=== PATIENT | male | born 1950 | race Caucasian/White ===

== ENCOUNTER 2018-12-10 04:21 | Inpatient (IN) | payer MEDICARE, MEDICAID ==
[~2018-12-10] VITALS: Ht 170.2 cm; Wt 87.3 kg
[2018-12-10 04:28] VITALS: Ht 170.2 cm; Wt 87.3 kg
--- NOTE | 2018-12-10 04:34 | NUR ---
PT PRESENTS TO ER TODAY WITH C/O CP THAT STARTED APPROX 2 WEEKS AGO. PER PT HIS PAIN GOT WORSE TONIGHT SO HE CAME TO ER FOR EVALUATION. PT STATES THAT HIS CP IS TO THE L SIDE OF HIS CHEST AND IS NON-RADIATING. PT UNABLE TO DESCRIBE PAIN STATING "IT JUST HURTS". PT RATES HIS PAIN A 10/10. PT ALSO REPORTS SOB, PT LUNG CLEAR IN ALL MIRANDA WITH AUSCULATION. PT IS A/O X4. RESP ARE EQUAL AND UNLABORED. NO ACUTE DISTRESS NOTED. FAMILY AT BEDSIDE.
[2018-12-10 05:07] LABS: BASOPHIL % 0.7 % (0-2); PLATELET COUNT 260 x10^3mcL (130-400); RED CELL DISTRIBUTION WIDTH 13.3 % (11.5-14.5)
[2018-12-10 05:34] LABS: CALCIUM 8.3 mg/dL (8.5-10.1); CARBON DIOXIDE 30.5 mmol/L (21-32); CHLORIDE SERUM 103 mmol/L (98-107); CREATININE SERUM 0.9 mg/dL (0.7-1.3); GFR1 > 60 mL/min; GLUCOSE SERUM 273 mg/dL (74-106); POTASSIUM SERUM 3.6 mmol/L (3.5-5.1); SODIUM SERUM 139 mmol/L (136-145)
[2018-12-10 05:39] LABS: ALBUMIN 3.5 g/dL (3.4-5.0); ALKALINE PHOSPHATASE 146 U/L (46-116); ALT/SGPT 24 U/L (16-63); AST/SGOT 16 U/L (15-37); BILIRUBIN TOTAL 0.58 mg/dL (0.20-1.00); TOTAL PROTEIN, SERUM 7.1 g/dL (6.4-8.2)
--- NOTE | 2018-12-10 05:46 | NUR ---
PT RESTING IN BED WITH EYE CLOSED. PT REPONDS TO VERBAL STIMULI. PT RATES HIS CP AT 2/10 AT THIS TIME. PT VITALS ARE STABLE. PT IS A/O X4. NO ACUTE DITRESS NOTED.
[2018-12-10] MEDS ORDERED: LANTUS SOLOS100 U/M1 SC (06:09)
[2018-12-10] MEDS ORDERED: METFORMIN HYD1000 M2 PO (06:09)
--- NOTE | 2018-12-10 06:49 | NUR ---
PT RESTING WITH EYE CLOSEDPT RATES HIS PAIN A 2/10. PT VITALS STABLE. NO ACUTE DISTRESS NOTED.
--- NOTE | 2018-12-10 07:04 | NUR ---
REPORT RECEIVED FROM RAMSES CORTEZ TO ASSUME CARE OF PT.
--- NOTE | 2018-12-10 07:51 | NUR ---
REPORT GIVEN TO RAMSES TORRES TO ASSUME CARE OF PT.
[2018-12-10 08:03] LABS: CHOLESTEROL/HDL RATIO 3.7
--- NOTE | 2018-12-10 08:20 | NUR ---
RECEIVED PT FROM ED WITH CC L SIDE CHEST PAIN X 2 WEEKS. PT AAOX4. RESP EVEN AND UNLABORED ON RA. REPORTS 03/03 PRESSURE CHEST PAIN TO L SIDE, NON-RADIATING. BOWEL SOUNDS ACTIVE, ABD SOFT, ROUND. LAST BM 12/09. VOIDING FREELY. AMBULATORY. PULSES PALPABLE ON ALL EXTREMITIES. SKIN C/D/I. IV TO LAC, NO REDNESS OR SWELLING. ORIENTED TO ROOM AND SURROUNDINGS. HOB ELEVATED. PT EATING BREAKFAST AT THIS TIME. BED IN LOW POSITION, CALL LIGHT WITHIN REACH. WILL CONTINUE TO MONITOR.
[2018-12-10 08:24] VITALS: BP 107/74
[2018-12-10 12:08] VITALS: BP 119/73
--- NOTE | 2018-12-10 12:46 | NUR ---
PT SITTING UP IN BED EATING LUNCH. NO ACUTE DISTRESS. AAOX4. RESP EVEN AND UNLABORED ON RA. REPORTS ON AND OFF MILD L SIDE CHEST PAIN, NON-RADIATING, TOLERABLE. IVF INFUSING, NO REDNESS OR SWELLING. HOB ELEVATED. CALL LIGHT WITHIN REACH. WILL CONTINUE TO MONITOR.
--- NOTE | 2018-12-10 16:30 | NUR ---
PT RESTING IN BED. NO ACUTE DISTRESS. BREATHING EVEN AND UNLABORED ON RA. SLEEPING BUT EASILY AROUSABLE. NO PAIN NOTED. IVF INFUSING, NO REDNESS OR SWELLING NOTED. HOB ELEVATED. CALL LIGHT WITHIN REACH. WILL CONTINUE TO MONITOR.
[2018-12-10 16:55] VITALS: BP 115/76
--- NOTE | 2018-12-10 18:13 | NUR ---
PT RESTING IN BED WATCHING TV. NO ACUTE DISTRESS. AAOX4. BREATHING EVEN AND UNLABORED ON RA. DENIES CP OR PRESSURE AT THIS TIME. IVF INFUSING, NO REDNESS OR SWELLING TO IV SITE. VISITORS AT BEDSIDE. BED IN LOW POSITION, CALL LIGHT WITHIN REACH. WILL ENDORSE TO ONCOMING SHIFT.
--- NOTE | 2018-12-10 19:22 | NUR ---
AWAKE AND ALERT, ORIENTED TO NAME, PLACE, TIME AND SITUATION. SPEECH CLEAR AND APPROPRIATE. HOB ELEVATED 45 DEG. BREATHING EVEN AND UNLABORED ON ROOM AIR, DENIES HAVING SHORTNESS OF BREATH. SINUS BRADYCARDIC ON TELE, HR 58/MIN. DENIES HAVING CHEST PAIN AT THIS TIME. BUT STATED EARLIER HAD EPISODE OF SHARP, NON-RADIATING PAIN THAT COMES AND GO. CALL LIGHT WITHIN EASY REACH.
[2018-12-10 20:48] VITALS: BP 116/67
--- NOTE | 2018-12-10 22:49 | NUR ---
EYES CLOSED, BREATHING EVEN AND UNLABORED ON ROOM AIR. HOB ELEVATED 30 DEG. CALL LIGHT WITHIN EASY REACH. SINUS BRADYCARDIC ON TELE, HR 50/MIN.
--- NOTE | 2018-12-11 01:38 | NUR ---
EYES CLOSED, BREATHING EVEN AND UNLABORED ON ROOM AIR. CALL LIGHT WITHIN EASY REACH.
--- NOTE | 2018-12-11 02:20 | NUR ---
STATED HAVING 8/10 PAIN TO LEFT SIDE OF CHEST, NON RADIATING. VITAL SIGNS BP 121/73, MD 53, RR 18. O2 SAT 93% ON ROOM AIR. MORPHINE 1MG ADMINISTERED IVP FOR PAIN. PLACED ON 2LPM OF O2 VIA NC.
--- NOTE | 2018-12-11 02:25 | NUR ---
INFORMED DR. DOMINGUEZ PT HAVING 8/10 PAIN TO LEFT SIDE OF CHEST, NON RADIATING, ALSO INFORMED NO NITROSTAT ADMINISTERED DUE TO LOW HEART RATE. INFORMED MORPHINE 1MG ADMINISTERED SLOW IVP FOR PAIN AND PLACED ON O2 AT 2LPM VIA NC. DR. DOMINGUEZ STATED HE WILL ORDER TROPONIN AND EKG.
--- NOTE | 2018-12-11 02:37 | NUR ---
EKG READS SINUS RHYTHM
[2018-12-11 04:48] LABS: CALCIUM 8.3 mg/dL (8.5-10.1); CARBON DIOXIDE 29.9 mmol/L (21-32); CHLORIDE SERUM 104 mmol/L (98-107); CREATININE SERUM 0.9 mg/dL (0.7-1.3); GFR1 > 60 mL/min; GLUCOSE SERUM 205 mg/dL (74-106); POTASSIUM SERUM 3.9 mmol/L (3.5-5.1); SODIUM SERUM 140 mmol/L (136-145)
[2018-12-11 04:58] LABS: BASOPHIL % 0.6 % (0-2); PLATELET COUNT 263 x10^3mcL (130-400); RED CELL DISTRIBUTION WIDTH 13.6 % (11.5-14.5)
[2018-12-11 05:25] VITALS: BP 123/77
--- NOTE | 2018-12-11 05:30 | NUR ---
DR. DOMINGUEZ CALLED, INFORMED PT TROP IS 0.191 AND PT HAD 8/10 PAIN TO CHEST.
--- NOTE | 2018-12-11 05:31 | NUR ---
PT STATED PAIN HAS GONE DOWN TO 3/10
--- NOTE | 2018-12-11 06:08 | NUR ---
IVF INFUSING WELL. IV SITE FREE FROM ERYTHEMA OR SWELLING. EYES CLOSED, NO GRIMACING NOTED. APPEARS COMFORTABLE. ON 2LPM OF O2 VIA NC. CALL LIGHT WITHIN EASY REACH. HR 53/MIN ON TELEMONITOR, SINUS IN RHYTHM.
[2018-12-11 07:07] LABS: MAGNESIUM 1.9 mg/dL (1.8-2.4); PHOSPHOROUS 3.3 mg/dL (2.5-4.9)
--- NOTE | 2018-12-11 07:09 | NUR ---
RECEIVED PT FROM [employer]AL [employer]UTTER NURSE. PT RESTING IN BED, AOX4, RESP E/U ON RA, DENIES CHEST PAIN OR SOB AT THIS TIME, NO ACUTE DISTRESS NOTED. ON TELE 5 SHOWING SINUS CHI, HR: 52. IV TO LAC W/ NO SIGNS OF INFILTRATION, IVF INFUSING WELL. BED IN LOWEST POSITION AND CALL LIGHT WITHIN REACH. WILL CONTINUE TO MONITOR.
--- NOTE | 2018-12-11 07:15 | NUR ---
PT DENIES HAVING CHEST PAIN. COMFORTABLE AT THIS TIME. ENDORSED TO NURSE JOSE ARMANDO
[2018-12-11 08:29] VITALS: BP 137/71
[2018-12-11 11:45] VITALS: BP 123/68
--- NOTE | 2018-12-11 11:50 | NUR ---
PT RESTING IN BED, AOX4, RESP E/U ON RA. DENIES CHEST PAIN OR SOB AT THIS TIME, NO ACUTE DISTRESS NOTED. BED IN LOWEST POSITION AND CALL LIGHT WITHIN REACH. WILL CONTINUE TO MONITOR.
[2018-12-11 17:20] VITALS: BP 124/70
--- NOTE | 2018-12-11 17:59 | NUR ---
PT RESTING IN BED, AXO4, RESP E/U ON 2L NC. DENIES CHEST PAIN/PALPITATIONS OR SOB, NO ACUTE DISTRESS NOTED. IV TO LAC W/ NO SIGNS OF INFILTRATION, IVF INFUSING WELL. BED IN LOWEST POSITION AND CALL LIGHT WITHIN REACH. WILL ENDORSE TO ONCOMING NURSE.
--- NOTE | 2018-12-11 20:06 | NUR ---
AWAKE AND ALERT, ORIENTED TO NAME, PLACE, TIME AND SITUATION. SPEECH CLEAR AND APPROPRIATE. BREATHING EVEN AND UNLABORED ON ROOM AIR. SINUS BRADYCARDIA ON TELE, STATED HE IS COMFORTABLE AT THIS TIME, INTERMITTENT CHEST PAIN 1/10 AT THIS TIME. IVF OF NS INFUSING WELL AT 50ML/HR TO LEFT AC. IV SITE FREE FROM ERYTHEMA OR SWELLING.
[2018-12-11 20:53] VITALS: BP 131/71
--- NOTE | 2018-12-11 23:50 | NUR ---
CONTRAST QUESTIONNAIRE DONE. NURSE DANNI, WHO IS A [place]ISH SPEAKER, TRANSLATED. 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 STATED HE HAS NO QUESTIONS. WITNESSED PT SIGN CONSENT FOR CARDIAC CATH AND MODERATE SEDATION.
[2018-12-12] VITALS (12 sets, daily range): BP systolic 104–131; BP diastolic 63–78
--- NOTE | 2018-12-12 02:46 | NUR ---
kept npo since midnight
--- NOTE | 2018-12-12 06:27 | NUR ---
AWAKE AND ALERT, BREATHING EVEN AND UNLABORED ON 2LPM OF O2 VIA NC. SINUS BRADYCARDIC ON TELE, HR 56/MIN. DENIES HAVING CHEST PAIN AT THIS TIME. CALL LIGHT WITHIN EASY REACH. HOB ELEVATED 30 DEG.
--- NOTE | 2018-12-12 07:21 | NUR ---
AWAKE AND ALERT, DENIES HAVING CHEST PAIN. IN NO ACUTE DISTRESS. KEPT NPO. ENDORSED TO NURSE KADEN
--- NOTE | 2018-12-12 07:49 | NUR ---
AAO TIMES 4. TELE # 5 SB 51. LUNGS CTA. NO SOB. O2 SAT ON RA 96%. BS'S ACTIVE TIMES 4. BHAT STRONG. NO C/O CARDIAC TYPE DISCOMFORT. PERIPHERAL PULSES PALPABLE. NO EDEMA. COOPERATIVE. IV SITE TO LAC PATENT, CDI.
--- NOTE | 2018-12-12 09:48 | NUR ---
6190 PATIENT RECEIVED TO UNIT VIA GURNEY AND ACCOMPANIED BY [employer] UNIT ADVISOR RN AND TECH. PATIENT ALERT AND AWAKE AND ABLE TO MAKE ALL NEEDS KNOWN. NO SOB NOTED. RESPIRATIONS EVEN AND UNLABORED. VSS. BEDSIDE ENDORSEMENT RECEIVED. TEGADERM DRESSING NOTED TO R GROIN AREA WITH SMALL AMOUNT OF SANGUINOUS DRAINAGE. NO HEMATOMA, NO BRUISING OR BLEEDING NOTED. R GROIN SOFT AND NONTENDER. PATIENT PROVIDED TEACHING REGARDING PLAN OF CARE WITH ANDORRAN TRANSLATION NEEDED BY FREDDIE MALT HOUSE SUPERVISOR. PATIENT MADE COMFORTABLE. CALL LIGHT WITHIN REACH. WILL CONTINUE TO MONITOR.
--- NOTE | 2018-12-12 11:05 | NUR ---
1005 PATIENT ALERT AND AWAKE AND ABLE TO MAKE ALL NEEDS KNOWN. NO SOB NOTED. RESPIRATIONS EVEN AND UNLABORED. DENIES ANY DISTRESS AT THIS TIME. SKIN WARM AND DRY TO TOUCH. VSS. PATIENT NOTED WITH TEGADERM DRESSING WITH SMALL SANGUINOUS OUTPUT NOTED. NO HEMATOMA AND NO BRUISING NOTED. R GROIN SOFT AND NONTENDER. PATIENT MADE COMFORTABLE. CALL LIGHT WITHIN REACH. WILL CONTINUE TO MONITOR.
--- NOTE | 2018-12-12 11:06 | NUR ---
1047 PATIENT TRANSPORTED TO PRIVATE ROOM AT THIS TIME VIA GURNEY AND ACCOMPANIED BY OUTPATIENT RNS. PATIENT ALERT AND AWAKE AND ABLE TO MAKE ALL NEEDS KNOWN. DENIES ANY PAIN OR DISTRESS AT THIS TIME. PATIENT RECEIVED BY KADEN PEARCE. ENDORSEMENT GIVEN. PATIENT MADE COMFORTABLE. DRESSING TO R GROIN REMAINS WITH SMALL SANGUINEOUS DRAINAGE NOTED. NO HEMATOMA OR BRUISING NOTED. R GROIN REMAINS SOFT AND NONTENDER. PATIENT MADE COMFORTABLE. CALL LIGHT WITHIN REACH.
--- NOTE | 2018-12-12 11:16 | NUR ---
BACK FROM CARDIAC CENTRAL OFFICE TROUBLE SHOOTER AT 1045. AAO TIMES 4. LAYING FLAT UNTIL 1335, PATIENT IS AWARE. VS'S STABLE. NO SOB. CLEAR DRESSING TO RIGHT GROIN CDI, NO HEMATOMA PRESENT.
--- NOTE | 2018-12-12 18:28 | NUR ---
AAO TIMES 4. TELE # 5 SB. VS'S STABLE. CLEAR DRESSING TO RIGHT GROIN WITH SMALL AMOUNT OF SANGUINOUS DRAINAGE, NO HEMATOMA PRESENT. HE WAS LAYING FLAT UNTIL 1430, AND HE AMBULATED TO [facility] AT 1830. IV SITE CDI. COOPERATIVE AND PLEASANT. DENIES DISCOMFORT.
--- NOTE | 2018-12-12 18:55 | NUR ---
REPORT GIVEN TO RAMONA PEARCE AT [facility] AT [phone].
[2018-12-12] MEDS ORDERED: LIPI10 PO (20:12)
[2018-12-12] MEDS ORDERED: ASPIR 8181 MG PO (20:13)
[2018-12-12] MEDS ORDERED: ZESTRIL5 MG PO (20:14)
[2018-12-12] MEDS ORDERED: NITROGLYCERIN0.4 MG SL (20:14)
--- NOTE | 2018-12-12 20:29 | NUR ---
PT. AWAKE, ALERT, ORIENTED X4. DENIES HEADACHE OR DIZZINESS. DENIES CHESTPAIN OR DISCOMFORT, SINUS CHI ON MONITOR. ABD. SOFT AND ROUND, BOWEL SOUNDS ACTIVE. DENIES ABD. PAIN. DENIES NAUSEA. NO EDEMA TO EXTREMITIES. PEDAL PULSES STRONG. IV SITE INTACT. BREATH SOUNDS CLEAR THROUGHOUT LUNG MIRANDA, RESP. EVEN, UNLABORED. NO SOB NOTED. PT. ON ROOM AIR. CALL LIGHT WITHIN REACH.
--- NOTE | 2018-12-12 21:50 | NUR ---
[facility] TRANSPORT HERE FOR PT. PT. BEING TRANSFERED TO [facility] FOR HIGHER LEVEL OF CARE. INSULIN MEDICATION GIVE FOR BLOOD SUGAR LEVEL OF 222/6 UNITS REG PER SLIDING SCALE. NO C/O PAIN, NO RESP. DISTRESS. PT. TRANSFERRED W/ BELONGINGS. PT LEFT WITHOUT INCIDENT.
== END 2018-12-12 21:56 | disposition short-term general hospital (02) | DRG 282 ==
LOC: ED 04:21 → DU 07:24
PROVIDERS: Internal Medicine Geriatric Medicine; Student in an Organized Health Care Education/Training Program; ADMIT Internal Medicine
PROC: B2111ZZ Fluoroscopy of Multiple Coronary Arteries using Low Osmolar Contrast (ICD-10-PCS; 2018-12-12)
PROC: B2151ZZ Fluoroscopy of Left Heart using Low Osmolar Contrast (ICD-10-PCS; 2018-12-12)
PROC: 4A023N7 Measurement of Cardiac Sampling and Pressure, Left Heart, Percutaneous Approach (ICD-10-PCS; principal; 2018-12-12 08:45)
DX: I21.4 Non-ST elevation (NSTEMI) myocardial infarction (principal); I11.9 Hypertensive heart disease without heart failure; I25.10 Atherosclerotic heart disease of native coronary artery without angina pectoris; E11.9 Type 2 diabetes mellitus without complications; E78.5 Hyperlipidemia, unspecified; Z79.4 Long term (current) use of insulin; Z68.31 Body mass index [BMI] 31.0-31.9, adult; Z87.891 Personal history of nicotine dependence; Z79.84 Long term (current) use of oral hypoglycemic drugs
CPT/HCPCS: CLHCL; 82962; 83880; C1760; C1894; C9113; G0378; J0461; J1644; J2001; J2250; J2270; J3010; J7030; Q0092; Q9967